=== PATIENT | male | born 1960 | race Caucasian/White ===

== ENCOUNTER 2017-06-12 12:52 | Outpatient (CLI) | payer MEDICARE ==
[~2017-06-12 12:52] MED LIST: Gadobenate Dimeglumine 529 MG/1 ML (20ML VIAL) ONE
--- NOTE | 2017-06-12 15:50 | MRI ---
MRI LUMBAR SPINE WITHOUT CONTRAST: 06/12/17 Multiplanar and multisequential imaging lumbar spine obtained. HISTORY: Low back pain, leg paresthesias. No comparison. Lumbar vertebrae maintain height and alignment. Degenerative disc changes are seen at all levels with loss of disc space being most prominent at L4-5. Degenerative end plate changes are prominent at L4- 5. At L1-2, mild disc bulge and mild facet arthrosis without significant central canal or foraminal sten osis. At L2-3, broad based disc bulge is more prominent flattening the thecal sac. Mild to moderate facet a nd ligamentous hypertrophy. These changes result in mild to moderate central canal stenosis. At L3-4, diffuse disc bulge combined with facet hypertrophy results in moderate central canal stenosi s. There is epidural fat posteriorly in spinal canal which also contributes. At L4-5, diffuse broad based disc bulge is present. Moderate facet hypertrophy. Posterior epidural fa t. These changes result in moderate to severe central canal stenosis. Bilateral foraminal stenosis. At L5-S1, there is annular fissure with focal disc protrusion centrally and paracentrally to the left compressing the thecal sac and displacing the traversing left S1 nerve root. This focal protrusion m easures up to 8 mm AP dimension in the axial plane. There is associated diffuse disc bulge and a face t hypertrophy. The changes result in moderate to severe central canal stenosis. IMPRESSION: 1. Annular fissure with disc protrusion centrally and to the left at L5-S1 as described above. 2. Disc bulge and hypertrophic changes result in central canal stenosis at L2-3, L3-4, and L4-5 as described above. POS: [facility]
--- NOTE | 2017-06-12 15:54 | RAD ---
FIVE VIEWS CERVICAL SPINE: HISTORY: Left-sided numbness and tingling. COMPARISON: None. FINDINGS: No prevertebral soft tissue swelling. In the neutral position, no significant malalignment. There i s mild degenerative change of C5-C6 and mild degenerative change at C6-C7. Upon flexion and extensio n, no abnormal translational motion. Cervical spine vertebral body heights are maintained. No fracture. Limited evaluation of the odonto id process on the open-mouth projection. On the AP projection, there are mild degenerative changes o f the facets. No malalignment. IMPRESSION: Mild degenerative change at C6-C7, and mild degenerative change at C5-C6. POS: [facility]
--- NOTE | 2017-06-12 15:55 | RAD ---
LUMBAR SPINE 4 VIEWS: Date: 06/12/17 HISTORY: Paresthesia. COMPARISON: None. FINDINGS: There are five lumbar-type vertebral bodies. In the neutral position, 3.0 mm of retrolisthesis of L2 upon L3. Upon flexion, there is 3.0 mm of retrolisthesis of L2 upon L3. Upon extension, there is 3.0 mm of retrolisthesis of L2 upon L3. Mild loss of disc space height at L4-L5 with osteophyte formation . IMPRESSION: 1. Degenerative changes of the lumbar spine as above. 2. Stable Grade I retrolisthesis of L2 upon L3. POS: [facility]
--- NOTE | 2017-06-12 16:07 | MRI ---
THORACIC SPINE MRI WITHOUT CONTRAST: 06/12/17 HISTORY: Leg paresthesia. Back pain. COMPARISON: None. TECHNIQUE: Thoracic spine MRI is performed without intravenous gadolinium administration. Multisequential and multiplanar imaging is performed. FINDINGS: There is appropriate T1 marrow signal intensity of the thoracic vertebrae. Thoracic spine vertebral b srinivas height is maintained. There is no fracture. There is no significant STIR hyperintensity to sugges t edema or ligamentous injury. There are type II Modic change centered at the T2-T3 level. There is appropriate signal intensity in the visualized lung parenchyma and mediastinal structures. M inimal dependent atelectatic changes in the lung are suspected. There is a T2 hyperintensity in the l eft kidney, incompletely evaluated. Conus medullaris terminates at the inferior aspect of T12. The thoracic cord has an overall normal si ze and signal intensity. No evidence of malacia. No evidence of cord hyperintensity. T1-T2: No high grade central canal stenosis. T2-T3: There appears to be vacuum disc phenomenon. Small left and right paracentral disc bulges. Mild central canal stenosis. T3-T4: Left and right paracentral disc bulges. There is deformity of the right hemicord. Mild to mode rate central canal stenosis. T4-T5: Left and right paracentral disc bulges. Mild central canal stenosis. T5-T6: Left paracentral disc bulge. Mild central canal stenosis. T6-T7: Minimal left paracentral disc bulge. No significant central canal stenosis. T7-T8: No significant central canal stenosis. T8-T9: Generalized disc bulge results in mild to moderate central canal stenosis. T9-T10: Minimal central canal stenosis due to disc bulge. T10-T11: Minimal central canal stenosis due to posterior element hypertrophy. T11-T12: No significant central canal stenosis. IMPRESSION: Degenerative changes of the thoracic spine as above. POS: [facility]
--- NOTE | 2017-06-12 17:01 | MRI ---
EXAM: MRI CERVICAL SPINE WITHOUT CONTRAST 06/12/17 HISTORY: Paresthesia, left sided symptoms. COMPARISON: None. TECHNIQUE: MRI cervical spine is performed without contrast. Multisequential, multiplanar imaging is performed. FINDINGS: There is mixed T1 and T2 hyperintensity with associated scattered STIR hyperintensity centered about the C6-C7 disc space suggesting a combination of type I and type II Modic changes. There are type II Modic changes with intrinsic T1 and T2 hypertension at C5-C6 compatible with type II Modic changes. No significant STIR hyperintensity to suggest ligamentous injury. The visualized brain parenchyma, cervicomedullary junction, cervical cord, and the upper thoracic cor d have a normal size and signal intensity. FINDINGS: C2-C3: No significant disc osteophyte complex. No significant central canal stenosis. Neural foramina are patent. C3-C4: No significant disc osteophyte complex. No significant central canal stenosis. Degenerative ch anges in bilateral uncovertebral joints results in moderate bilateral foraminal narrowing. C4-C5: No significant disc osteophyte complex. No significant central canal stenosis. Degenerative ch anges in bilateral uncovertebral joints and right facet hypertrophy results in moderate right and mil d to moderate left foraminal narrowing. C5-C6: Broad based disc osteophyte complex abuts the thecal sac. There is mild central canal stenosis . Degenerative changes in bilateral uncovertebral joints results in moderate bilateral foraminal narr owing. A small component of disc material is noted inferior to the disc space along the left subartic ular zone. C6-C7: No significant central canal stenosis. Right neural foramen is patent. Severe left foraminal n arrowing due to a large disc osteophyte complex. There appears to be a component of disc material in the left subarticular zone, superior to the disc space, measuring 0.8 cm. C7-T1: No significant central canal stenosis. Right neural foramen is patent. Moderate left foraminal narrowing. IMPRESSION: Degenerative changes of the cervical spine as detailed above. POS: [facility]
--- NOTE | 2017-06-12 17:53 | MRI ---
BRAIN MRI WITH AND WITHOUT CONTRAST: 06/12/17 COMPARISON: None. HISTORY: Left sided numbness and tingling of the upper extremity. TECHNIQUE: Multiplanar and multisequence MR imaging of brain obtained with and without contrast. FINDINGS: The diffusion weighted imaging demonstrates no evidence for acute infarction. The axial gradient echo imaging demonstrates no evidence for intracranial hemorrhage. There are numerous subcentimeter foci of increased T2 and FLAIR signal within the deep and subcortica l white matter suggesting small vessel disease. There is encephalomalacia within the occipital lobe medially on the right, evidence of prior right PC A infarction. There is a linear gradient echo blooming artifact in this region suggesting areas of re mote calcification and/or hemorrhage associated with this prior right [employer] infarction. Arterial flow voids at the axial level of the skull base appear unremarkable on the T2 weighted imagi ng. Within the nasal cavity on the right, there is a round lesion measuring 1 cm which is hyperintense on precontrast T1 weighted imaging and demonstrates T2 and FLAIR hyperintensity. No definite enhancemen t is seen on postcontrast imaging. This suggests a proteinaceous/complex cystic polyp within the righ t nasal cavity. Recommend correlation with direct visualization. There is a significant degree of ame nosis suspected at the distal most aspect of the left vertebral artery. Postcontrast imaging demonstrates no abnormal enhancement within the brain parenchyma. IMPRESSION: No acute infarction. 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 Multiple additional incidental findings as described above. POS: [facility]
== END 2017-06-12 12:53 | disposition home or self-care (01) ==
LOC: TBSIIMAG 12:52
PROVIDERS: ATTEND Physician Assistant Surgical
DX: R20.2 Paresthesia of skin (principal); M54.9 Dorsalgia, unspecified; M54.2 Cervicalgia; M47.896 Other spondylosis, lumbar region; M47.892 Other spondylosis, cervical region; M47.894 Other spondylosis, thoracic region; M51.26 Other intervertebral disc displacement, lumbar region; M51.86 Other intervertebral disc disorders, lumbar region; M48.061 Spinal stenosis, lumbar region without neurogenic claudication; Z86.73 Personal history of transient ischemic attack (TIA), and cerebral infarction without residual deficits
CPT/HCPCS: 70553; 72050; 72110; 72141; 72146; 72148; A9579

== ENCOUNTER 2017-10-04 14:16 | Outpatient (CLI) | payer MEDICARE ==
--- NOTE | 2017-10-04 15:44 | CT ---
CT ANGIOGRAM OF THE NECK: 10/04/17 HISTORY: CVA. Left shoulder pain. COMPARISON: None. TECHNIQUE: Postcontrast soft tissue neck CT is performed in the axial plane. Three dimensional reformatted imag es are submitted for interpretation. FINDINGS: The visualized brain parenchyma is unremarkable. There is a hypodensity in the right nasal cavity, in completely evaluated. Attenuation coefficient is 54 Hounsfield units. Adequate aeration of the parana jagjit sinuses and mastoid air cells. Aerodigestive tract is patent. Mild nonspecific fullness in both palatine tonsils. No obvious mass in the oral cavity. Midline fatty raphae of the tongue is preserved. Epiglottis has a normal caliber. Pre-epiglottic fat is preserved. There is no prevertebral soft tissue swelling. Symmetric attenuation of the parotid and submandibular glands. Unremarkable thyroid gland. No evidence of lymphadenopathy due to size criteria. Nonspecific, nonenlarged soft tissue lymph nodes. Upper mediastinum and lung apices are unremarkable. Cervical spine vertebral body height is maintained. There is no fracture. There is vacuum disc phenom enon at C5 and C6. CT ANGIOGRAM: There is appropriate enhancement and luminal diameter of the aortic arch. RIGHT CAROTID: The right carotid artery origin has appropriate enhancement and luminal diameter. The right common ca rotid artery, carotid bifurcation and internal carotid artery have appropriate enhancement and lumina l diameter. LEFT CAROTID: Left carotid artery origin has appropriate enhancement and luminal diameter. The left common carotid artery, carotid bifurcation, and internal carotid artery have appropriate enhancement and luminal reuben meter. The right cervical vertebral artery is patent throughout its course in the neck. The left cervical ve rtebral artery has areas of decreased/absence enhancement. Note: The right vertebral artery is dominant. The visualized left and right subclavian artery are unremarkable. IMPRESSION: 1. Dominant right vertebral artery. No significant stenosis. 2. No evidence of significant stenosis based upon NASCET criteria in either carotid artery. POS: [facility]
== END 2017-10-04 14:17 | disposition home or self-care (01) ==
LOC: TBSIIMAG 14:16
PROVIDERS: ATTEND Surgery
DX: I63.9 Cerebral infarction, unspecified (principal); M54.12 Radiculopathy, cervical region
CPT/HCPCS: 70498